=== PATIENT | male | born 1990 | race Caucasian/White ===

== ENCOUNTER 2020-06-28 14:40 | Emergency (ER) | payer OTHER, SELFPAY ==
[2020-06-28 14:59] VITALS: BP 160/78; PULSE 116; RESP 16; TEMP 36.6; O2SAT 98
--- NOTE | 2020-06-28 14:59 | ED.EXTPRO ---
HPI - Extremity Problem General Chief complaint: Extremity Problem,Nontraumatic Stated complaint: Right Knee Pain Source: patient Mode of arrival: ambulatory Limitations: no limitations History of Present Illness HPI Narrative: Patient is a 30-year-old male who presents complaining of right knee pain. Patient reports history of gout since they have been 20 years old . He reports most recent flare x3 days. He reports taking Indocin without relief. He denies all other complaints at this time. He reports that he has new PCP and has been unable to see at this time. He denies all other complaints. Related Data Home Medications Medication Instructions Recorded Confirmed indomethacin 50 mg PO BID 06/28/20 06/28/20 Allergies Allergy/AdvReac Type Severity Reaction Status Date / Time No Known Allergies Allergy Mild Unverified 06/28/20 14:54 Review of Systems Review of Systems: Narrative: CONSTITUTIONAL: Denies fever, chills, or sweats. EYES: Denies visual changes, redness, or discharge. ENT: Denies rhinorrhea, congestion, sore throat, or otalgia. CARDIOVASCULAR: Denies chest pain, palpitations, or edema. RESPIRATORY: Denies cough or dyspnea. GASTROINTESTINAL: Denies abdominal pain, nausea, vomiting, or diarrhea. GENITOURINARY: Denies dysuria or hematuria. SKIN: Denies rash or itching. MUSCULOSKELETAL: Reports right knee pain NEUROLOGIC: Denies headache, numbness, dizziness, or weakness. PSYCHIATRIC: Denies anxiety or depression. [facility] Past Medical History Medical History Gout Surgical History Surgical History No significant past surgical history Family History Family History Father Family history of gout Mother Patient's mother is in good health Social History Social History (Updated 06/28/20 @ 15:04 by ALAN Vo) Smoking status: Heavy tobacco smoker Second hand tobacco smoke exposure: Yes Alcohol intake: current Substance use: never Living arrangements: with family Occupation/Education: unemployed Gender identity (if verbalized by the patient): Male Comments At the time of signature, I have reviewed and agree with nursing past medical, surgical, social, and family history unless otherwise noted. Please see nursing chart for further information. There is no relevant family history pertinent to the presenting complaint. Exam Narrative: Exam Narrative: GENERAL: Well-appearing, well-nourished, and in no acute distress. HEAD: Normocephalic, atraumatic. EYES: EOMI. No redness or drainage. ENT: Mucous membranes pink and moist. CHEST: No respiratory distress. HEART: Regular rate and rhythm. EXTREMITIES: Edema, mild erythema SKIN: Warm, dry, no rash. NEURO: No focal deficits. Alert and oriented x3. Gait steady. PSYCH: Normal affect. No signs of depression or anxiety. Course Vital Signs Vital signs: Vital Signs Temperature 36.6 C 06/28/20 14:59 Pulse Rate 116 H 06/28/20 14:59 Respiratory Rate 16 06/28/20 14:59 Blood Pressure 160/78 H 06/28/20 14:59 Pulse Oximetry 98 06/28/20 14:59 Temperature 36.6 C 06/28/20 14:59 Pulse Rate 116 H 06/28/20 14:59 Respiratory Rate 16 06/28/20 14:59 Blood Pressure 160/78 H 06/28/20 14:59 Pulse Oximetry 98 06/28/20 14:59 MDM - Extremity (Nontraumatic) MDM Narrative Medical decision making narrative: Patient's most likely diagnosis is gout. Patient has history of gout for the past 10 years. He reports indomethacin not working at this time. Patient has been unable to see his new PCP as of this time. Patient is stable for discharge home with outpatient follow-up as discussed. Differential Diagnosis Differential diagnosis: Likely gout, cellulitis, lower extremity edema and deep vein thrombosis of lower extremity Medical Records Attestati
== END 2020-06-28 15:26 | disposition home or self-care (01) ==
PROVIDERS: Emergency Provider Nurse Practitioner; PCP Family Medicine
DX: M10.9 Gout, unspecified (principal); F17.200 Nicotine dependence, unspecified, uncomplicated
CPT/HCPCS: 99213; G0463

== ENCOUNTER 2020-07-05 11:28 | Emergency (ER) | payer OTHER, SELFPAY ==
--- NOTE | ~2020-07-05 | XR_ITS ---
EXAMINATION: XR knee RT min 4V DATE: 07/05/2020 11:57 INDICATION: Right knee pain TECHNIQUE: Four views of the right knee were obtained. COMPARISON: None. FINDINGS: Alignment is normal. No fracture or osteochondral lesion. Joint spaces are normal with no e rosions. There is a moderate-sized knee joint effusion. Soft tissues are unremarkable. IMPRESSION: 1. Moderate size knee joint effusion. Reviewed, dictated and finalized at location A. L STAMPER
[2020-07-05 11:34] VITALS: BP 134/104; PULSE 116; RESP 20; TEMP 36.4; O2SAT 98
[2020-07-05 11:39] VITALS: BP 134/104; PULSE 116; RESP 17; TEMP 36.4; O2SAT 98
[2020-07-05 14:29] VITALS: BP 128/96; PULSE 79; RESP 15; O2SAT 100
--- NOTE | 2020-07-05 17:28 | ED.GENADULT ---
HPI - General Adult General Chief complaint: Extremity Injury, Lower Stated complaint: right knee pain Time Seen by Provider: 07/05/20 11:40 Source: patient Mode of arrival: ambulatory Limitations: no limitations History of Present Illness HPI narrative: Patient presents with chief complaint of right knee pain that began a few days ago. Patient reports that he plays hockey but cannot recall a specific moment of injury. He reports that he also has a history of gout although it does not generally present in his knee he is suspicious. There are some swelling to the knee but he denies heat or erythema. He has not had any fevers, chills, nausea, vomiting, diarrhea. Patient has been wearing a knee brace for support. He denies any other symptoms or injuries. Related Data Allergies Allergy/AdvReac Type Severity Reaction Status Date / Time No Known Allergies Allergy Mild Unverified 07/05/20 11:37 Review of Systems Review of Systems: Narrative: CONSTITUTIONAL: Denies fever, chills, or sweats. EYES: Denies visual changes, redness, or discharge. ENT: Denies rhinorrhea, congestion, sore throat, or otalgia. CARDIOVASCULAR: Denies chest pain, palpitations, or edema. RESPIRATORY: Denies cough or dyspnea. GASTROINTESTINAL: Denies abdominal pain, nausea, vomiting, or diarrhea. GENITOURINARY: Denies dysuria or hematuria. SKIN: Denies rash or itching. MUSCULOSKELETAL: Reports right knee pain and swelling denies back pain or myalgia. NEUROLOGIC: Denies headache, numbness, dizziness, or weakness. PSYCHIATRIC: Denies anxiety or depression. [facility] Past Medical History Medical History Gout Surgical History Surgical History No significant past surgical history Family History Family History Father Family history of gout Mother Patient's mother is in good health Social History Social History (Updated 06/28/20 @ 15:04 by ALAN Vo) Smoking status: Heavy tobacco smoker Second hand tobacco smoke exposure: Yes Alcohol intake: current Substance use: never Gender identity (if verbalized by the patient): Male Exam Narrative: Exam Narrative: GENERAL: Well-appearing, well-nourished, and in no acute distress. HEAD: Normocephalic, atraumatic. EYES: PERRLA and EOMI. ENT: Nares clear, no rhinorrhea or epistaxis. Mucous membranes moist. Oropharynx without tonsillar hypertrophy exudate or other lesions. Bilateral TMs pearly sinclair nonbulging CHEST: Clear to auscultation. No respiratory distress. No wheezes rales or rhonchi HEART: Regular rate and rhythm. EXTREMITIES: Decreased extension due to pain. Swelling noted on compared to the left knee. No erythema or heat or wounds suspicious of septic joint. SKIN: Warm, dry, no rash. NEURO: No focal deficits. Alert and oriented x3. PSYCH: Normal mood and affect. Course Vital Signs Vital signs: Vital Signs Temperature 97.5 F L 07/05/20 11:34 Pulse Rate 116 H 07/05/20 11:34 Respiratory Rate 20 07/05/20 11:34 Blood Pressure 134/104 H 07/05/20 11:34 Pulse Oximetry 98 07/05/20 11:34 Temperature 97.5 F L 07/05/20 11:39 Pulse Rate 79 07/05/20 14:29 Respiratory Rate 15 07/05/20 14:29 Blood Pressure 128/96 H 07/05/20 14:29 Pulse Oximetry 100 07/05/20 14:29 Medical Decision Making MDM Narrative Medical decision making narrative: Patient will be put on prednisone. Patient instructed to follow-up primary care with the specialist for further investigation. He has a joint effusion. Discussed RICE instructions. Patient already has a brace and crutches discussed nonweightbearing. Differential Diagnosis Differential Diagnosis: Fracture, sprain, strain, gout, septic joint, effusion Vital Signs Vital Signs: Vital Signs Temperature 97.5 F L 07/05/20 11:34 Pulse Rate 116 H 07/05/20 11
== END 2020-07-05 14:34 | disposition home or self-care (01) ==
PROVIDERS: Physician Assistant; Emergency Provider Emergency Medicine
DX: M25.461 Effusion, right knee (principal); M10.9 Gout, unspecified; F17.200 Nicotine dependence, unspecified, uncomplicated
CPT/HCPCS: 36415; 73564; 84550; 99283

== ENCOUNTER 2020-09-11 07:24 | Emergency (ER) | payer OTHER, SELFPAY ==
--- NOTE | ~2020-09-11 | XR_ITS ---
XR foot LT min 3V DATE: 09/11/2020 08:36 INDICATION: Pain and swelling TECHNIQUE: 4 views COMPARISON: None FINDINGS: Mild osteoarthritis at the first metatarsophalangeal joint. No fracture or dislocation, periosteal reaction or bone destruction. Mild posterior calcaneal enthesopathy. IMPRESSION: Mild osteoarthritis at first metatarsophalangeal joint Mild posterior calcaneal enthesopathy Reviewed, dictated and finalized at location A.
[2020-09-11 07:33] VITALS: BP 146/93; PULSE 102; RESP 20; TEMP 36.6; O2SAT 98
--- NOTE | 2020-09-11 08:18 | ED.LOWEXIN ---
HPI - Extremity Injury (Lower) General Chief Complaint: Extremity Injury, Lower Stated Complaint: Left ankle pain X3-4 days Time Seen by Provider: 09/11/20 08:13 History of Present Illness HPI Narrative: 30 yo male w/ h/o gout presents to the ED for left foot pain. He has had pain in the left foot for the past 3 days. The pain is moderate. He is very tender. He has been taking ibuprofen with some improvement. This is associated with swelling. These are similar to his gout symptoms, he has never had it in this location. He has had good response to prednisone in the past. Related Data Allergies Allergy/AdvReac Type Severity Reaction Status Date / Time No Known Allergies Allergy Mild Verified 09/11/20 07:36 Review of Systems Review of Systems: All systems reviewed & are unremarkable except as noted in HPI and below Constitutional: Constitutional: Denies chills and Denies fever(s) Cardiovascular: Cardiovascular: Denies chest pain Respiratory: Respiratory: Denies dyspnea Musculoskeletal: Musculoskeletal: Denies back pain Neurologic: Denies dizziness and Denies weakness [facility] Past Medical History Medical History Gout Surgical History Surgical History No significant past surgical history Family History Family History Father Family history of gout Mother Patient's mother is in good health Social History Social History Smoking status: Heavy tobacco smoker Second hand tobacco smoke exposure: Yes Alcohol intake: current Substance use: never Gender identity (if verbalized by the patient): Male Exam Const: General: healthy appearing, no acute distress and alert Orientation/consciousness: patient oriented x3 HENMT: Head: normal to inspection Resp: Effort & Inspection: normal respiratory effort Auscultation: clear to auscultation bilaterally Cardio: Rate: regular rate Rhythm: regular rhythm Other: 2+ bilateral DP Skin: General skin exam: normal color Neuro: General: patient oriented x3 and moves all extremities Speech: normal speech Extrem: Other: Mild swelling and warmth to mid foot. Course Vital Signs Vital signs: Vital Signs Temperature 36.6 C 09/11/20 07:33 Pulse Rate 102 H 09/11/20 07:33 Respiratory Rate 20 09/11/20 07:33 Blood Pressure 146/93 H 09/11/20 07:33 Pulse Oximetry 98 09/11/20 07:33 Temperature 36.6 C 09/11/20 07:33 Pulse Rate 80 09/11/20 09:45 Respiratory Rate 20 09/11/20 09:45 Blood Pressure 138/80 09/11/20 09:45 Pulse Oximetry 99 09/11/20 09:45 MDM - Extremity Injury (Lower) MDM Narrative Medical decision making narrative: Presnetation consistent with gout. 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
[2020-09-11] MEDS: predniSONE 20 MG TABLET 40 MG PO (09:19)
[2020-09-11 09:45] VITALS: BP 138/80; PULSE 80; RESP 20; O2SAT 99
== END 2020-09-11 09:50 | disposition home or self-care (01) ==
PROVIDERS: Emergency Provider Emergency Medicine
DX: M10.9 Gout, unspecified (principal)
CPT/HCPCS: 73630; 99283; J7512

== ENCOUNTER 2020-09-24 15:10 | Emergency (ER) | payer OTHER, SELFPAY ==
[2020-09-24 15:12] VITALS: BP 147/98; PULSE 96; RESP 16; TEMP 36.2; O2SAT 100
[2020-09-24 15:30] VITALS: BP 124/77; PULSE 88; RESP 18; TEMP 36.7; O2SAT 99
[2020-09-24 15:31] VITALS: BP 147/98; PULSE 96; RESP 16; TEMP 36.2; O2SAT 100
[2020-09-24 15:37] LABS: Glucose Point of Care 390 mg/dl (65-105)
--- NOTE | 2020-09-24 15:43 | ED.GENADULT ---
HPI - General Adult General Chief complaint: Recheck/Abnormal Lab/Rx Stated complaint: high blood sugar Time Seen by Provider: 09/24/20 15:28 Source: patient Mode of arrival: ambulatory Limitations: no limitations History of Present Illness HPI narrative: Patient is a 30-year-old male complaining of increasing thirst, increased urinary frequency and no energy. Patient states that he is worried he he might have diabetes since it runs in his family. Related Data Allergies Allergy/AdvReac Type Severity Reaction Status Date / Time No Known Allergies Allergy Mild Verified 09/11/20 07:36 Review of Systems Review of Systems: All systems reviewed & are unremarkable except as noted in HPI and below Constitutional: Constitutional: Denies body ache(s), Denies chills, Denies excessive sweating, Denies fatigue, Denies fever(s), Denies headache(s), Denies lethargy, Denies malaise, Denies weakness and Denies weight loss Eyes: Eyes: Denies blurry vision, Denies change in vision and Denies loss of vision ENT: Denies dizziness, Denies ear discharge, Denies headache(s), Denies lip swelling, Denies epistaxis, Denies nasal congestion, Denies neck pain, Denies throat swelling and Denies tongue swelling Cardiovascular: Cardiovascular: Denies chest pain, Denies chest pain at rest, Denies chest pain with activity, Denies diaphoresis, Denies rapid heart rate, Denies edema, Denies irregular heart rhythm, Denies lightheadedness, Denies palpitations, Denies dyspnea and Denies dyspnea on exertion Respiratory: Respiratory: Denies chest congestion, Denies cough, Denies hemoptysis, Denies dyspnea and Denies dyspnea on exertion Gastrointestinal: Gastrointestinal: Denies abdominal pain, Denies melena, Denies hematochezia, Denies diarrhea, Denies nausea, Denies vomiting and Denies hematemesis Musculoskeletal: Musculoskeletal: Denies abnormal gait, Denies deformity, Denies joint swelling, Denies limited range of motion, Denies neck pain and Denies numbness Neurologic: Denies Abnormal speech present, Denies abnormal gait, Denies confusion, Denies dizziness, Denies headache(s), Denies focal weakness, Denies loss of vision, Denies numbness, Denies Other visual disturbances, Denies Sensory deficit (Neuro) and Denies weakness Psychiatric: Psychiatric: Denies confusion, Denies depression, Denies auditory hallucinations, Denies homicidal ideation and Denies suicidal ideation Endocrine: Endocrine: Denies cold intolerance, Denies excessive sweating, Denies heat intolerance and Denies palpitations Hematologic/Lymphatic: Hematologic/Lymphatic: Denies easy bleeding and Denies easy bruising Allergic/Immunologic: Allergic/Immunologic: Denies lip swelling, Denies throat swelling and Denies tongue swelling PMFSH Past Medical History Medical History Gout Surgical History Surgical History No significant past surgical history Family History Family History Father Family history of gout Mother Patient's mother is in good health Social History Social History Smoking status: Heavy tobacco smoker Second hand tobacco smoke exposure: Yes Alcohol intake: current Substance use: never Gender identity (if verbalized by the patient): Male Exam Const: General: cooperative, healthy appearing, comfortable, no acute distress, well developed, alert and awake; No confusion Orientation/consciousness: oriented to person, oriented to place, oriented to time, patient oriented x3 and No confusion Limitations: no limitations HENMT: Head: normal to inspection, normocephalic and atraumatic Ears: hearing grossly normal bilaterally, TM normal on the right and TM normal on the left General nose exam: Normal external nose present, Normal nares present and No nasal d
[2020-09-24 15:46] LABS: Basophils Percent Auto 0.3 % (0.2-1.2); Eosinophils Absolute Auto 0.1 K/mm3 (0-0.3); Hematocrit 39.6 % (42.0-52.0); Immature Granulocyte Absolute 0.11 K/mm3 (0.00-0.031); Immature Granulocyte Percent A 0.8 % (0-0.5); Lymphocytes Absolute Auto 4.14 K/mm3 (0.9-3.2); Lymphocytes Percent Auto 30.9 % (18.3-44.2); Mean Corpuscular HGB Conc 35.4 g/dl (32-36); Mean Corpuscular Hemoglobin 30.9 pg (26-34); Mean Corpuscular Volume 87.4 fl (80-100); Monocytes Absolute Auto 0.9 K/mm3 (0.1-0.6); Monocytes Percent Auto 6.5 % (2.6-8.5); Neutrophils Absolute Auto 8.1 K/mm3 (1.3-6.7); Neutrophils Percent Auto 60.5 % (45.5-73.1); Platelet Count Result 282 k/mm3 (150-375); Red Blood Count 4.53 M/mm3 (4.6-6.20); Red Cell Distribution Width 11.9 % (11.5-14.5); White Blood Count 13.4 K/mm3 (4.5-10.0)
[2020-09-24 15:50] LABS: Add Urine Microscopic? YES; Appearance Urine Clear (Clear); Bilirubin Urine Negative (Negative); Blood Urine Negative (Negative); Color Urine Straw (Yellow); Glucose Urine UA 3+ mg/dL (Negative); Ketones Urine 1+ mg/dL (Negative); Leukocyte Esterase Ur Negative LEU/UL (Negative); Nitrate Urine Negative (Negative); Protein Urine Negative (Negative); RBC Urine 0-2 /hpf (0-2); Squamous Epithelial Cell Urine Rare /hpf (Few); Urobilinogen Urine Negative mg/dL (<2.0); WBC Urine 0-3 /hpf
[2020-09-24 16:01] LABS: Alanine Aminotransferase 42 U/L (4-50); Albumin Level 4.7 g/dL (3.5-5.1); Alkaline Phosphatase 112 U/L (38-126); Anion Gap 12 mmol/L (8-16); Aspartate Amino Transferase 31 U/L (17-59); Bilirubin,Total 0.8 mg/dL (0.2-1.3); Blood Urea Nitrogen 18 mg/dL (9-20); Calcium 9.8 mg/dL (8.4-10.2); Carbon Dioxide 25 mmol/L (22-30); Chloride 97 mmol/L (98-107); Estimated CRCL calculation 167 ml/min; Estimated Glomerular Filt Rate > 60; Glucose 395 mg/dL (75-110); Magnesium 1.7 mg/dL (1.6-2.3); Phosphorus 3.5 mg/dL (2.5-4.5); Potassium 4.1 mmol/L (3.4-5.0); Sodium 134 mmol/L (137-145)
[2020-09-24 16:10] LABS: Beta-Hydroxybutyrate/Acetoacetate 1.16 mmol/L (0.02-0.27)
[2020-09-24 16:18] LABS: Specific Grav Ur 1.032 (1.001-1.035)
[2020-09-24 16:40] LABS: Alveolar/Arterial O2 Gradient 18.5 mmHg; Base Excess ABG -3.4 mEq/l (+/-2.0); Carboxyhemoglobin 2.2 % THb (0-2.0); Fractional Inspired Oxygen 21 %; HCO3 ABG 21.8 mEq/l (22.0-26.0); Methemoglobin ABG 0.3 %THb (0-1.5); Oxygen Content ABG 18.8 %vol (16.0-22.0); Oxygen Saturation ABG 95.9 % (95.0-100.0); Oxyhemoglobin 93.3 % THb (90.0-100.0); PCO2 ABG 39.9 mmHg (35.0-45.0); PO2 ABG 83.5 mmHg (80.0-100.0); PO2 FiO2 Ratio Arterial Blood 3.98 %; Reduced Hemoglobin 4.2 %THb (0-5.0); Total Hemoglobin 14.3 g/dL (12.0-18.0); pH ABG 7.356 (7.350-7.450)
[2020-09-24 16:41] LABS: Device ROOM AIR; Site Drawn LEFT BRACHIAL
[2020-09-24] MEDS: SODIUM CHLORIDE 0.9% IV 1,000 ML 999 ML IV CONT (17:00)
[2020-09-24] MEDS: LACTATED RINGERS 1,000 ML 999 ML IV CONT (17:00)
[2020-09-24 17:26] VITALS: BP 123/81; PULSE 80; RESP 18; O2SAT 100
[2020-09-24] MEDS: metFORMIN HCL 500 MG TABLET PO (19:41)
[2020-09-24 19:43] VITALS: BP 142/71; PULSE 82; RESP 18; O2SAT 100
[2020-09-24 19:56] LABS: Glucose Point of Care 264 mg/dl (65-105)
[2020-09-24 19:56] LABS: Glucose Point of Care 290 mg/dl (65-105)
== END 2020-09-24 19:43 | disposition home or self-care (01) ==
PROVIDERS: Emergency Medicine; Emergency Provider Emergency Medicine
DX: E11.9 Type 2 diabetes mellitus without complications (principal); M10.9 Gout, unspecified; F17.290 Nicotine dependence, other tobacco product, uncomplicated
CPT/HCPCS: 36415; 36600; 73140; 80053; 81001; 82010; 82375; 82805; 82948; 83050; 83735; 84100; 85025; 96360; 99283; A9270; J7030; J7120

== ENCOUNTER 2024-02-27 11:13 | Emergency (ER) | payer BC, SELFPAY ==
[2024-02-27 11:24] VITALS: BP 127/73; PULSE 119; RESP 18; TEMP 37.2; O2SAT 99
--- NOTE | 2024-02-27 12:31 | ED.URI ---
HPI - URI/Sore Throat General Chief Complaint: Upper Respiratory Infection Stated Complaint: Fever/Throat irritation Time Seen by Provider: 02/27/24 12:10 Source: patient, RN notes reviewed and old records reviewed Mode of arrival: ambulatory Limitations: no limitations History of Present Illness HPI Narrative: 34-year-old male presents to express care with complaint of headache, sore throat, body aches, and occasional cough since yesterday. Patient reports that he had fever of 101.5 this morning with chills and sweats. Patient reports recent exposure to strep from his nephew.Patient reports that he has taken Tylenol and Ibuprofen for his symptoms. MD elicited complaint: cough and sore throat Onset (ago): day(s) (day 2 of symptoms) Pain scale (0-10): 6 Able to tolerate fluids by mouth: Yes Treatments prior to arrival: acetaminophen and ibuprofen Related Data Home Medications Medication Instructions Recorded Confirmed semaglutide 0.25 mg or 0.5 mg (2 mg subcut 02/27/24 mg/3 mL) subcutaneous pen injector ([employer]) Allergies Allergy/AdvReac Type Severity Reaction Status Date / Time No Known Allergies Allergy Mild Verified 02/27/24 11:20 Review of Systems Review of Systems: CONSTITUTIONAL: Reports malaise, chills, sweats, or fever. EYES: Denies visual changes, redness, or discharge. ENT: Reports rhinorrhea, congestion, no sinus pain, no otalgia and positive sore throat. CARDIOVASCULAR: Denies chest pain, palpitations, or edema. RESPIRATORY: Reports cough.? Denies dyspnea. GASTROINTESTINAL: Denies abdominal pain, nausea, vomiting, diarrhea SKIN: Denies rash or itching. MUSCULOSKELETAL:Reports myalgia. NEUROLOGIC: Reports headache. All systems reviewed & are unremarkable except as noted in HPI and below PMFSH Past Medical History Medical History (Updated 03/01/24 @ 11:22 by Cecy Carrion NP) Diabetes Fractured hand left Gout Surgical History Surgical History No significant past surgical history Family History Family History Father Family history of gout Mother Patient's mother is in good health Social History Social History (Updated 03/01/24 @ 11:21 by Cecy Carrion NP) Smoking status: Former smoker Second hand tobacco smoke exposure: Yes Alcohol intake: current Substance use: never Living arrangements: with family Occupation/Education: unemployed Gender identity (if verbalized by the patient): Male Comments At time of signature, agree with nursing past medical, surgical, social and family history. There is no relevant family history pertinent to the presenting complaint Exam Narrative: GENERAL: Well-appearing, well-nourished, and in no acute distress. HEAD: Normocephalic EYES: PERRLA, conjunctivae clear ENT: Nares clear, turbinates edematous and erythematous, clear discharge. Mucous membranes moist. TM pearly sinclair with dull light reflex bilaterally; no tragal tenderness. Oropharynx erythematous without lesions. Tonsils red mildly enlarged and without exudate, no drooling, no hoarseness, no trismus, uvula midline.post nasal drainage NECK: Supple. lymphadenopathy CHEST: Clear to auscultation, breath sounds equal. No wheezing, rhonchi, rales, or stridor. No respiratory distress, speaks in full sentences.SAO2 99% on room air HEART: Regular rate and rhythm. No murmur heard. SKIN: Warm, dry, no rash. NEURO: Alert and oriented x3. PSYCH: Normal mood and affect Course Course Emergency Course: Patient is aware of diagnosis, understands and agrees to treatment plan.? Anticipatory guidance given.? Patient agrees to follow-up as directed and is aware of reasons to seek care at the emergency department. Portions of this record may have been created with voice recognition software Level of Care: Express Care Visit Vital Signs Vital signs: Vital Signs Temperature 37.2 C 02/27/24 11:24 Pulse Rate 119 H 02/27/24 11:24 Respiratory Rate 18 02/27/24 11:24 Blood Pressure 127/73 02/27/24 11:24 Pulse Oximetry 99 02/27/24 11:24 Oxygen Delivery Room Air 02/27/24 11:24 Temperature 37.2 C 02/27/24 11:24 Pulse Rate 119 H 02/27/24 11:24 Respiratory Rate 18 02/27/24 11:24 Blood Pressure 127/73 02/27/24 11:24 Pulse Oximetry 99 02/27/24 11:24 Oxygen Delivery Room Air 02/27/24 11:24 Reviewed MDM - URI/Sore Throat MDM Narrative Medical decision making narrative: Differential diagnosis considered: Butler virus, strep pharyngitis, allergic rhinitis, upper respiratory tract infection, sinusitis, rhinosinusitis, nasopharyngitis. viral pharyngitis, otitis media, otitis externa, pneumonia, bronchitis, viral cough syndrome, viral syndrome, and influenza.? Exam findings show no acute concerns or changes; patient is non-toxic appearing and is in no distress.? Patient is appropriate for outpatient treatment and follow-up. Differential Diagnosis Differential diagnosis: Likely upper respiratory infection, sinusitis, viral infection, influenza, pharyngitis and other (strep pharyngitis, COVID) Medical Records Attestation: I reviewed the patient's medical records. Lab Data Attestation: I reviewed the patient's lab results. Lab results narrative: strep screen negative culture sent, Influenza A negative, Influenza B negative, COVID antigen negative Labs: Lab Results 02/27/24 02/27/24 Range/Units 12:54 13:08 POC Influenza A Ag Negative (Negative) POC Influenza B Ag Negative (Negative) POC SARS CoV-2 Ag Negative (Negative) POC Grp A Strep Screen Negative (Negative) Critical Care Time Critical Care Time Critical Care Time: No Discharge Plan Discharge Clinical Impression: Exposure to strep throat Pharyngitis Qualifiers: Pharyngitis/tonsillitis etiology: unspecified etiology Qualified Code(s): J02.9 - Acute pharyngitis, unspecified Patient Disposition: Home, Self-Care Condition: Stable Instructions: Antibiotic Form, Pharyngitis (ED) Additional Instructions: Increase fluids especially juices and water [id number] cough and cold medicine of your choice for your symptoms Zyrtec Claritin or Tracey daily Tylenol ibuprofen for any fever pain heat to the face 20-30 minutes 4-6 times a day for pain Salt water gargles, throat lozenges or throat sprays as desired Antibiotic as directed--finished the medication If your symptoms persist, change or worsen significantly before you can contact your personal physician then please, without delay, go to the emergency department for further evaluation. Follow-up with PCP in 7-10 days or sooner if needed Follow up with PCP soon in regards to your blood pressure which is elevated above threshold for referral. Blood pressure above 120/80 may indicate pre-hypertension. Minimal systolic elevation at 127/73 . Take the entire course of antibiotics. Throw away your current toothbrush and begin using a new toothbrush in 48 hours in order to prevent re-infection. Sanitize all reusable water bottles . Do not share items with others. Salt water gargles may alleviate some of the throat discomfort. Prescriptions: New amoxicillin 875 mg tablet 875 mg PO Q12H Qty: 20 0RF No Action Ozempic 0.25 mg or 0.5 mg (2 mg/3 mL) pen injector SUBCUT metformin 500 mg tablet 500 mg PO BID Qty: 60 0RF Follow-up/Referrals: Walker Gamboa MD [Primary Care Provider] - Time of Disposition: 13:06 Quality Janice Coma Scale Eyes: Open Verbal: Oriented and Alert Motor: Follows Commands Janice Coma Total Score: 15
[2024-02-27 12:56] LABS: EDCOVIDSCREEN Negative (Negative); EDSTREPNEGPOS1 Negative (Negative)
[2024-02-27 13:11] LABS: EDINFLUASCREEN Negative (Negative); EDINFLUBSCREEN Negative (Negative)
== END 2024-02-27 13:11 | disposition home or self-care (01) ==
PROVIDERS: Emergency Provider Registered Nurse; PCP Family Medicine
DX: J02.9 Acute pharyngitis, unspecified (principal); Z20.818 Contact with and (suspected) exposure to other bacterial communicable diseases; Z20.822 Contact with and (suspected) exposure to COVID-19; Z87.891 Personal history of nicotine dependence; E11.9 Type 2 diabetes mellitus without complications; H10.9 Unspecified conjunctivitis
CPT/HCPCS: 87081; 87426; 87804; 87880; 99213; G0463

== ENCOUNTER 2024-07-11 15:21 | Emergency (ER) | payer OTHER, SELFPAY ==
--- OUTSIDE RECORDS SUMMARY | 2024-07-11 15:25 | XMS_ITS | Referral Summary ---
Author Organization [facility] Address [address] [place] [address] Care Team Providers Care Scrub Technician Name Role Phone Walker Gamboa MD Primary Care Provider [phone] Allergies Active Allergy Reactions Criticality Noted Date Comments Cat Dander Eye irritation Low 06/30/2023 Medications metFORMIN (GLUCOPHAGE) 1,000 mg tablet Take 1 tablet (1,000 mg total) by mouth 2 (two) times a day with meals 180 tablet 3 06/30/2023 Active Active Problems No known active problems Social History Tobacco Use Types Packs/Day Years Used Date Smoking Tobacco: Former Cigarettes Smokeless Tobacco: Never Tobacco Cessation:Counseling Given: Not Answered Comments:Smoking History Packs/day: 1 Packs Alcohol Use Standard Drinks/Week Comments Yes 4 (1 standard drink = 0.6 oz pur e alcohol) Personal Safety Answer Date Recorded Have you ever been in or are you currently in a harmful physical or emotional relationship or is someone making you feel afraid or unsafe? 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 Gender Identity Not on file Sexual Orientation Not on file Last Filed Vital Signs Vital Sign Reading Time Taken Comments Blood Pressure 143/80 03/01/2024 9:33 AM CDT Pulse 109 03/01/2024 11:39 AM CDT Temperature 37.6 C (99.7 F) 03/01/2024 9:33 AM CDT Respiratory Rate 18 03/01/2024 9:33 AM CDT Oxygen Saturation 96% 03/01/2024 11:39 AM CDT Inhaled Oxygen Concentration - - Weight 117.9 kg (260 lb) 03/01/2024 9:33 AM CDT Height 190.5 cm (6' 3 ) 03/01/2024 9:33 AM CDT Body Mass Index 32.5 03/01/2024 9:33 AM CDT Plan of Treatment Not on file Insurance [id number] OOS Care Teams Scrub Technician Relationship Specialty Start Date End Date Walker Gamboa MD PCP - General Family Medicine 11/20/22
--- OUTSIDE RECORDS SUMMARY | 2024-07-11 15:25 | XMS_ITS | Clinical Summary ---
Author Organization [facility] Address [address] [place] [address] Care Team Providers Care Antisubmarine Weapons Officer Name Role Phone Walker Gamboa MD Primary Care Provider [phone] Allergies Active Allergy Reactions Criticality Noted Date Comments Cat Dander Eye irritation Low 06/30/2023 Medications metFORMIN (GLUCOPHAGE) 1,000 mg tablet Take 1 tablet (1,000 mg total) by mouth 2 (two) times a day with meals 180 tablet 3 06/30/2023 Active Active Problems No known active problems Medical History Medical History Date Comments Diabetes mellitus (HCC) Family History Medical History Relation Name Comments Gout Father Gout; Relation Name Status Comments Father Social History Tobacco Use Types Packs/Day Years [...] on file 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 Gender Identity Not on file Sexual Orientation Not on file Obstetrics History Last Filed Vital Signs Vital Sign Reading [...] 03/01/2024 9:33 AM CDT Plan of Treatment Health Maintenance Due Date Last Done Comments Depression Screening 1991 Hepatitis C Screening 1991 DTaP/Tdap/Td Vaccine (6 - Tdap) 2002 09/04/1995, 08/11/1992, 1991, Additional history exists Varicella Vaccines (1 of 2 - 13+ 2-dose series) 01/29/2004 Hepatitis B Screening 2009 Regular Well Visit/Exam 18-64 2009 Covid-19 Vaccine ( season) 2023 12/16/2020, 11/25/2020 Influenza Vaccine (#1) 2023 HPV Vaccines Aged Out No longer eligi ble based on patient's age to complete this topic Pneumococcal vaccine <65 Aged Out No longer eligible based on patient's age to complete this topic [place] [id number] [employer] OOS Care Teams Antisubmarine Weapons Officer Relationship Specialty Start Date End Date Walker Gamboa MD PCP - General Family Medicine 11/20/22
[2024-07-11 15:26] VITALS: BP 131/72; PULSE 103; RESP 16; TEMP 36.1; O2SAT 98
--- NOTE | 2024-07-11 15:33 | ED_ITS ---
HPI - URI/Sore Throat General Chief Complaint: Upper Respiratory Infection Stated Complaint: poss sinus infection/throat Time Seen by Provider: 07/11/24 15:37 Source: patient and RN notes reviewed Mode of arrival: ambulatory Limitations: no limitations History of Present Illness HPI Narrative: 34-year-old male presents with concern for 2 day history of sinus congestion, drainage, cough, sore throat. Reports he had a fever on Sunday. He has been taking [id number] medicines. MD elicited complaint: sore throat and nasal congestion Related Data Home Medications ?Medication ?Instructions ?Recorded ?Confirmed ?Last Taken ?Type semaglutide 0.25 mg or 0.5 mg (2 mg subcut 02/27/24 Unknown History mg/3 mL) subcutaneous pen injector (Ozempic) Allergies Allergy/AdvReac Type Severity Reaction Status Date / Time No Known Allergies Allergy Mild Verified 07/11/24 15:28 Review of Systems Review of Systems: CONSTITUTIONAL: Denies malaise, chills, sweats. Reports history of fever. EYES: Denies visual changes, redness, or discharge. ENT: Reports rhinorrhea, congestion, and sore throat. CARDIOVASCULAR: Denies chest pain, palpitations, or edema. RESPIRATORY: Reports cough. Denies dyspnea. GASTROINTESTINAL: Denies abdominal pain, nausea, vomiting, diarrhea SKIN: Denies rash or itching. MUSCULOSKELETAL: Denies myalgia. NEUROLOGIC: Denies headache. All systems reviewed & are unremarkable except as noted in HPI and below PMFSH Past Medical History Medical History (Updated 07/11/24 @ 15:45 by Amelia Carlos NP) Fractured hand left Diabetes Gout Surgical History Surgical History No significant past surgical history Family History Family History Father Family history of gout Mother Patient's mother is in good health Social History Social History (Updated 03/01/24 @ 11:21 by Cecy Carrion NP) Smoking status: Former smoker Second hand tobacco smoke exposure: Yes Alcohol intake: current Substance use: never Living arrangements: with family Occupation/Education: unemployed Gender identity (if verbalized by the patient): Male Comments At time of signature, agree with nursing past medical, surgical, social and family history. There is no relevant family history pertinent to the presenting complaint Exam Narrative: GENERAL: Well-appearing, well-nourished, and in no acute distress. HEAD: Normocephalic EYES: PERRLA, conjunctivae clear ENT: Nares clear. Mucous membranes moist. TM pearly sinclair with dull light reflex bilaterally; no tragal tenderness. Oropharynx not erythematous without lesions. Tonsils not enlarged and without exudate, no drooling, no hoarseness, no trismus, uvula midline. NECK: Supple. No lymphadenopathy CHEST: Clear to auscultation, breath sounds equal. No wheezing, rhonchi, rales, or stridor. No respiratory distress, speaks in full sentences. HEART: Regular rate and rhythm. No murmur heard. SKIN: Warm, dry, no rash. NEURO: Alert and oriented x3. PSYCH: Normal mood and affect Course Course Emergency Course: Patient is aware of diagnosis, understands and agrees to treatment plan. Anticipatory guidance given. Patient agrees to follow-up as directed and is aware of reasons to seek care at the emergency department. Portions of this record may have been created with voice recognition software Level of Care: Express Care Visit Vital Signs Vital signs: Vital Signs Temperature 97 F L 07/11/24 15:26 Pulse Rate 103 H 07/11/24 15:26 Respiratory Rate 16 07/11/24 15:26 Blood Pressure 131/72 07/11/24 15:26 Pulse Oximetry 98 07/11/24 15:26 Oxygen Delivery Room Air 07/11/24 15:26 Temperature 97 F L 07/11/24 15:26 Pulse Rate 103 H 07/11/24 15:26 Respiratory Rate 16 07/11/24 15:26 Blood Pressure 131/72 07/11/24 15:26 Pulse Oximetry 98 07/11/24 15:26 Oxygen Delivery Room Air 07/11/24 15:26 Reviewed. MDM - URI/Sore Throat MDM Narrative Medical decision making narrative: Differential diagnosis considered: Butler virus, strep pharyngitis, allergic rhinitis, upper respiratory tract infection, sinusitis, rhinosinusitis, nasopharyngitis. viral pharyngitis, otitis media, otitis externa, pneumonia, bronchitis, viral cough syndrome, viral syndrome, and influenza. Exam findings show no acute concerns or changes; patient is non-toxic appearing and is in no distress. Patient is appropriate for outpatient treatment and follow-up. Lab Data Attestation: I reviewed the patient's lab results. Critical Care Time Critical Care Time Critical Care Time: No Discharge Plan Discharge Clinical Impression: Upper respiratory infection Patient Disposition: Home, Self-Care Condition: Stable Instructions: Upper Respiratory Infection (ED) Additional Instructions: Your rapid COVID and flu tests are negative Your rapid strep swab was negative today at [facility]. A throat culture will be sent to the laboratory for further testing. If the test is positive, you will receive a phone call within 48 hours and an appropriate antibiotic will be initiated at that time. Your symptoms are likely due to a viral illness, which is not treated with antibiotics. Viral symptoms can be present for up to a few weeks. -Alternate Tylenol and Motrin per package directions for fever or pain. -Antihistamine medication such as Benadryl at night and Zyrtec during the day can help improve symptoms. -Eat and drink things that are easy to swallow, like tea or soup, or popsicles to suck on. -Oral rinses such as: Salt water gargles and/or may use topical anesthetic (eg. Chloraseptic spray) or lozenges to relieve dryness or throat pain). -Frequent hand washing or hand tail dogger is one of the best ways to prevent spread of infection. -Follow up with primary care provider in 2-3 days if condition is not improving; or seek ER visit if you have trouble breathing, cannot drink enough fluids, have muffled voice, difficulty opening your mouth, or severe swelling. Patient Language: Irish Prescriptions: New pseudoephedrine HCl [12 Hour Decongestant] 120 mg tablet extended release 120 mg PO Q12H PRN (Reason: nasal congestion) Qty: 12 0RF No Action Ozempic 0.25 mg or 0.5 mg (2 mg/3 mL) pen injector SUBCUT metformin 500 mg tablet 500 mg PO BID Qty: 60 0RF Follow-up/Referrals: Walker Gamboa MD [Primary Care Provider] - Time of Disposition: 15:45
[2024-07-11 15:46] LABS: EDSTREPNEGPOS1 Negative (Negative)
[2024-07-11 15:50] LABS: EDCOVIDSCREEN Negative (Negative); EDINFLUASCREEN Negative (Negative); EDINFLUBSCREEN Negative (Negative)
== END 2024-07-11 15:48 | disposition home or self-care (01) ==
PROVIDERS: Emergency Provider Nurse Practitioner; PCP Family Medicine
DX: J06.9 Acute upper respiratory infection, unspecified (principal); Z20.822 Contact with and (suspected) exposure to COVID-19; E11.9 Type 2 diabetes mellitus without complications; Z79.84 Long term (current) use of oral hypoglycemic drugs; Z79.85 Long-term (current) use of injectable non-insulin antidiabetic drugs; M10.9 Gout, unspecified; Z87.891 Personal history of nicotine dependence
CPT/HCPCS: 87081; 87426; 87804; 87880; 99213; G0463